=== PATIENT | male | born 1970 | race Caucasian/White ===

== ENCOUNTER → 2017-08-25 | Outpatient (CLI) | payer OTHER ==
[~2017-08-25] MED LIST: ALBU90OI INH; Advair Hfa 230-12 GM INH; BENZ2 PO; FOLI1 PO; GUAI600T33 PO; Guanfacine HCl2 MG PO; HYDR25SUP PR; IBUP800 PO; K-TAB ER20 MEQ PO; Kristalose20 GM PO; LAMO100 PO; LITH300C PO; NAPR500 PO; OLAN5; OMEP20ER PO; QUET100; RISP3 PO; SUMA25 PO; TEMA15 PO; THIA100 PO; TOPI50 PO; Ventolin5 MG/1 ML INH
[2017-08-25 17:05] LABS: Influenza A Negative (NEGATIVE); Influenza B Negative (NEGATIVE)
== END ==
LOC: LAB 12:19
PROVIDERS: Nurse Practitioner Family
DX: R05 Cough (principal)
CPT/HCPCS: 87804